=== PATIENT | female | born 1990 | race African-American/Black ===

== ENCOUNTER 2020-03-21 15:25 | Emergency (ER) | payer OTHER, SELFPAY ==
[2020-03-21 15:27] VITALS: BP 138/87; PULSE 120; RESP 16; TEMP 36.6; O2SAT 99
--- NOTE | 2020-03-21 16:29 | ED.SKABFB ---
HPI - Skin/Abscess/Foreign Bdy General Chief complaint: Skin/Abscess/Foreign Body Stated complaint: boil on r leg Time Seen by Provider: 03/21/20 15:52 Source: patient Mode of arrival: ambulatory Limitations: no limitations History of Present Illness HPI narrative: This is a 29-year-old female that presents the emergency department for abscess on the buttock buttock present x4 days. Reports pain and swelling in the area. Denies fever or drainage. Related Data Allergies Allergy/AdvReac Type Severity Reaction Status Date / Time No Known Allergies Allergy Verified 03/21/20 15:31 Review of Systems Review of Systems: Narrative: CONSTITUTIONAL: Denies fever SKIN: Reports abscess All systems reviewed & are unremarkable except as noted in HPI and below PMFSH Past Medical History Medical History (Updated 03/21/20 @ 18:34 by Mahnaz Musa PA-C) No active medical problems Social History Social History (Updated 03/21/20 @ 16:30 by Mahnaz Musa PA-C) Smoking status: Never smoker Gender identity (if verbalized by the patient): Female Exam Narrative: Exam Narrative: GENERAL: Well-appearing, well-nourished, and in no acute distress. HEAD: Normocephalic, atraumatic. EYES: EOMI. EXTREMITIES: Normal range of motion. No edema. Right lower buttock/ upper thigh with 4cm area of erythema and edema with central fluctuance SKIN: Warm, dry, no rash. NEURO: No focal deficits. Alert and oriented x3. PSYCH: Normal mood and affect Course Vital Signs Vital signs: Vital Signs Temperature 97.9 F 03/21/20 15:27 Pulse Rate 120 H 03/21/20 15:27 Respiratory Rate 16 03/21/20 15:27 Blood Pressure 138/87 03/21/20 15:27 Pulse Oximetry 99 03/21/20 15:27 Temperature 97.9 F 03/21/20 15:27 Pulse Rate 101 H 03/21/20 18:17 Respiratory Rate 15 03/21/20 18:17 Blood Pressure 136/87 03/21/20 18:17 Pulse Oximetry 100 03/21/20 18:17 Procedures Abscess I/D lower extremity: Date of Incision: 03/21/20 Time of Incision: 18:30 Side (if applicable): right Local Anesthetic: lidocaine 1% and with epi Amount of anesthesia used (mL): 4 Technique: incised with #11 blade Packing used?: plain I&D Results: Pus and Blood MDM - Skin/Abscess/Foreign Bdy MDM Narrative Medical decision making narrative: Patient presents to the emergency department for abscess present on the right buttock x 4 days. Patient is afebrile and nontoxic-appearing. Abscess successfully drained. Will be started on oral antibiotics. Was instructed to follow-up with primary care doctor. She was given warnings to return to the ER Critical Care Time Critical Care Time Critical Care Time: No Discharge Plan Discharge Clinical Impression: Abscess of skin or subcutaneous tissue Qualifiers: Site of cutaneous abscess: buttock Qualified Code(s): L02.31 - Cutaneous abscess of buttock Patient Disposition: Home, Self-Care Condition: Stable Instructions: Antibiotic Form, Abscess (ED) Additional Instructions: Return if symptoms worsen or concerns: any increase in redness, swelling, pain, or fever over 101 Take antibiotics as directed. Clean wound with mild soapy water. Apply antibiotic ointment and clean dressing at least three times daily. Warm compresses 3 times a day for 30 minutes each Follow up with primary care in the next 2-3 days for re-evaluation and packing removal Prescriptions: New sulfamethoxazole-trimethoprim 800-160 mg tablet 1 tablet PO Q12H 7 Days Qty: 14 RF: 0 Follow-up/Referrals: Matias Decker MD [Primary Care Provider] - 3 Days
[2020-03-21 18:17] VITALS: BP 136/87; PULSE 101; RESP 15; O2SAT 100
== END 2020-03-21 18:59 | disposition home or self-care (01) ==
PROVIDERS: Emergency Provider Emergency Medicine; PCP Obstetrics & Gynecology
DX: L02.31 Cutaneous abscess of buttock (principal)
CPT/HCPCS: 10060; 99283